=== PATIENT | female | born 1965 | race African-American/Black ===

== ENCOUNTER 2019-05-04 20:24 | Emergency (ER) | payer MEDICARE, MEDICAID ==
--- NOTE | 2019-05-04 21:28 | ER Document Report ---
ED General - General Chief Complaint: High Blood Pressure Stated Complaint: HIGH BLOOD PRESSURE Time Seen by Provider: 05/04/19 21:09 Primary Care Provider: FANNY CURTIS MD [ACTIVE STAFF] - 05/06/19 Notes: Patient is a 53-year-old female that comes to the emergency department for chief complaint of episodes since this morning where she feels palpitations, she states she felt lightheaded on a couple different occasions as well. She did not pass out. She denies chest pain. She states she is worried about her blood pressure because it has been all over the place. She denies headache. She states she has been belching a lot as well. She denies caffeine, alcohol, recreational drugs, smoking. She takes amlodipine 10 mg, was recently placed on HCTZ 12.5 mg and started on atorvastatin but she has not taken the atorvastatin yet. She denies medical history otherwise. She denies any current complaints other than feeling palpitations occasionally. TRAVEL OUTSIDE OF THE [place] IN LAST 30 DAYS: No - Related Data Allergies/Adverse Reactions: No Known Allergies Allergy (Unverified 05/04/19 20:53) Past Medical History - General Information source: Patient - Social History Smoking Status: Never Smoker Frequency of alcohol use: None Drug Abuse: None Lives with: Family Family History: Reviewed & Not Pertinent - Past Medical History Cardiac Medical History: Reports: Hx Hypercholesterolemia, Hx Hypertension - Immunizations Immunizations up to date: Yes Hx Diphtheria, Pertussis, Tetanus Vaccination: Yes Review of Systems - Review of Systems Constitutional: See HPI EENT: No symptoms reported Cardiovascular: See HPI Respiratory: No symptoms reported Gastrointestinal: No symptoms reported Genitourinary: No symptoms reported Female Genitourinary: No symptoms reported Musculoskeletal: No symptoms reported Skin: No symptoms reported Hematologic/Lymphatic: No symptoms reported Neurological/Psychological: No symptoms reported Physical Exam - Vital signs Vitals: Temp 98.7 F 05/04/19 20:27 - Notes Notes: GENERAL: Alert, interacts well. HEAD: Normocephalic, atraumatic. EYES: Pupils equal, round, and reactive to light. Extraocular movements intact. ENT: Oral mucosa moist, tongue midline. Oropharynx unremarkable. Airway patent. Nares patent, no nasal septal hematoma, LUNGS: Clear to auscultation bilaterally, no wheezes, rales, or rhonchi. No respiratory distress. HEART: Sinus rhythm but also noted extrasystoles. No murmur ABDOMEN: Soft, non-tender. Non-distended. Bowel sounds present in all 4 quadrants. GENITOURINARY: Deferred EXTREMITIES: Moves all 4 extremities spontaneously. No edema, normal radial and dorsalis pedis pulses bilaterally. No cyanosis. BACK: no cervical, thoracic, lumbar midline tenderness. No saddle anesthesia, normal distal neurovascular exam. Moves all extremities in full range of motion. NEUROLOGICAL: Alert and oriented x3. Normal speech. Cranial nerves II through XII grossly intact. PSYCH: Patient very easily becomes anxious and starts talking anxiously, comes tachycardic when this happens, however she is easily reassured SKIN: Warm, dry, normal turgor. No rashes or lesions noted. Course - Re-evaluation Re-evalutation: Patient is well-appearing. She does have a lot of PVCs on the monitor. She does not have consecutive months other than 2 in a row. She can feel pa lpitations, she felt lightheaded earlier, she did not pass out, she has not had chest pain. Electro lites unremarkable including magnesium. Troponin negative. Chest x-ray unremarkable. Blood pressure is borderline high. Thyroid unremarkable. I discussed at length with patient using Malagasy sign language. Patient has not started her hydrochlorothiazide yet, she is currently only on amlodipine, she is supposed to be starting her hydrochlorothiazide. She is having a lot of PVCs, she already does not smoke, she already avoids caffeine, she states she sleeps well, she does have anxiety. Plan is to place her on a beta-mamadou for blood pressure and palpitations, this also might help some with anxiety. I discussed this at length. I discussed this with Dr. Alcala. Patient is also to follow-up with cardiology for Holter monitoring and she is to return if she worsens in any way. I discussed this with family at bedside. They state understanding and agreement with plan. - Vital Signs Vital signs: Temp Pulse Resp BP Pulse Ox 98.0 F 18 176/94 H 100 05/04/19 20:30 05/05/19 00:01 05/05/19 00:01 05/04/19 23:54 - Laboratory Result Diagrams: 05/04/19 20:57 05/04/19 20:57 Laboratory results interpreted by me: 05/04/19 05/04/19 20:57 20:57 MCH 26.8 L RDW 14.5 H Sodium 135.7 L Chloride 96 L Glucose 118 H Calcium 10.4 H Total Protein 8.9 H Albumin 5.1 H - EKG Interpretation by Me Additional EKG results interpreted by me: EKG shows sinus tachycardia at a rate of 108, frequent PVCs, no T wave inversions or ST segment changes in consecutive leads, QTC of 456, normal axis. Discharge - Discharge Clinical Impression: Palpitations, Essential hypertension, PVCs (premature ventricular contractions) Condition: Stable Disposition: HOME, SELF-CARE Additional Instructions: Your work-up is reassuring. Your evaluation shows that you are having many PVCs, these are extra heartbeats. You have been started on the Toprol-XL 25 mg daily for this and your blood pressure, take your amlodipine for blood pressure as well, you can also start your atorvastatin as prescribed. Please call the listed number for close follow-up with cardiology for additional evaluation and management including possible Holter monitor because of your lightheaded episode with the palpitations earlier. Return if you worsen including passing out, chest pain, or any other concerning or worsening symptoms. Prescriptions: Metoprolol Succinate [Toprol Xl 25 mg Tab.sr] 25 mg PO DAILY #30 tab.sr.24h Referrals: FANNY CURTIS MD [ACTIVE STAFF] - 05/06/19
[2019-05-04 21:40] LABS: ABSOLUTE EOSINOPHILS # (AUTO) 0.1 10^3/uL (0.0-0.6); ABSOLUTE LYMPHOCYTES (AUTO) 1.6 10^3/uL (0.5-4.7); ABSOLUTE MONOCYTES (AUTO) 0.4 10^3/uL (0.1-1.4); ABSOLUTE NEUT (AUTO) 2.4 10^3/uL (1.7-8.2); EOSINOPHILS % (AUTO) 1.9 % (0-6); HEMATOCRIT 42.2 % (36.0-47.0); MEAN CORPUSCULAR HEMOGLOBIN 26.8 pg (27.0-33.4); MEAN CORPUSCULAR HGB CONC 33.2 g/dL (32.0-36.0); MEAN CORPUSCULAR VOLUME 81 fl (80-97); MONOCYTES % (AUTO) 8.6 % (3-13); PLATELET COUNT 262 10^3/uL (150-450); RED BLOOD COUNT 5.23 10^6/uL (3.72-5.28); RED CELL DISTRIBUTION WIDTH 14.5 % (11.5-14.0); SEGMENTED NEUTROPHILS % (AUTO) 52.5 % (42-78); TOTAL CELLS COUNTED % (AUTO) 100 %; WHITE BLOOD COUNT 4.5 10^3/uL (4.0-10.5)
[2019-05-04 22:04] LABS: FREE T4 (FREE THYROXINE) 1.51 ng/dL (0.78-2.19)
[2019-05-04 22:18] LABS: THYROID STIMULATING HORMONE 2.46 uIU/mL (0.47-4.68)
--- NOTE | 2019-05-04 22:22 | RADIOLOGY REPORT (SQ) ---
EXAM DESCRIPTION: [facility]: XR CHEST 1 VIEW CLINICAL HISTORY: 53 years Female, lightheaded, palpitations COMPARISON: None. FINDINGS: Lungs are clear, with no focal infiltrate, pneumothorax, or pleural effusion. Mediastinum is within normal limits for this positioning. Bony structures are unremarkable. IMPRESSION: 1. No acute pulmonary findings.
[2019-05-04 23:02] LABS: ALBUMIN 5.1 g/dL (3.5-5.0); ALKALINE PHOSPHATASE 119 U/L (38-126); ANION GAP 16 (5-19); ASPARTATE AMINO TRANSFERASE 35 U/L (14-36); BILIRUBIN,DIRECT 0.3 mg/dL (0.0-0.4); BILIRUBIN,TOTAL 0.6 mg/dL (0.2-1.3); BLOOD UREA NITROGEN 11 mg/dL (7-20); CALCIUM 10.4 mg/dL (8.4-10.2); CARBON DIOXIDE 24 mmol/L (22-30); CHLORIDE 96 mmol/L (98-107); GLUCOSE 118 mg/dL (75-110); POTASSIUM 3.6 mmol/L (3.6-5.0); TOTAL PROTEIN 8.9 g/dL (6.3-8.2)
[2019-05-04] MEDS ORDERED: NORMAL SALINE 1000 ML 1,000 ML IV ONE (23:24)
[2019-05-04 23:36] LABS: APPEARANCE,URINE CLEAR; BILIRUBIN,URINE NEGATIVE (NEGATIVE); COLOR,URINE COLORLESS; GLUCOSE, URINE NEGATIVE (NEGATIVE); KETONES,URINE NEGATIVE (NEGATIVE); LEUKOCYTE ESTERASE,URINE NEGATIVE (NEGATIVE); NITRITE,URINE NEGATIVE (NEGATIVE); PROTEIN,URINE NEGATIVE (NEGATIVE); URINE SPECIFIC GRAVITY 1.002; UROBILINOGEN,URINE NEGATIVE mg/dL (<2.0)
[2019-05-05 00:38] VITALS: BP 176/94
--- NOTE | 2019-05-05 09:33 | EKG REPORT ---
SEVERITY:- ABNORMAL ECG - SINUS TACHYCARDIA PAIRED VENTRICULAR PREMATURE COMPLEXES NONSPECIFIC T ABNORMALITIES, LATERAL LEADS : Confirmed by: Dorita Huerta MD 05-May-2019 09:32:09
== END 2019-05-05 00:46 | disposition home or self-care (01) ==
LOC: ER 20:24
DX: R00.2 Palpitations (principal); I10 Essential (primary) hypertension; I49.3 Ventricular premature depolarization; E78.00 Pure hypercholesterolemia, unspecified
CPT/HCPCS: 93005; 99285; 96360; 36415; 84439; 83735; 84443; 85025; 80053; 81001; 84484; 71045; 93010; J7030